=== PATIENT | female | born 1985 | race Caucasian/White ===

== ENCOUNTER → 2019-09-10 11:08 | Outpatient (BNVA) | payer MEDICAID, SELFPAY | PROVIDERS: PCP Nurse Practitioner; Visit Provider Nurse Practitioner | DX: F32.9 Major depressive disorder, single episode, unspecified (principal); N39.0 Urinary tract infection, site not specified; K52.9 Noninfective gastroenteritis and colitis, unspecified | CPT/HCPCS: 81003; 87086 ==

== ENCOUNTER → 2019-11-11 12:09 | Outpatient (BNVA) | payer OTHER, MEDICAID, SELFPAY | PROVIDERS: PCP Nurse Practitioner; Visit Provider Nurse Practitioner | DX: N93.9 Abnormal uterine and vaginal bleeding, unspecified (principal); R60.9 Edema, unspecified | CPT/HCPCS: 80053; 84443; 85025 ==

== ENCOUNTER → 2019-11-13 15:37 | Outpatient (BNVA) | payer OTHER, SELFPAY | PROVIDERS: PCP Nurse Practitioner; Visit Provider Nurse Practitioner | DX: N93.9 Abnormal uterine and vaginal bleeding, unspecified (principal) | CPT/HCPCS: 81000 ==

== ENCOUNTER → 2019-12-30 13:40 | Outpatient (BNVA) | payer OTHER, MEDICAID, SELFPAY | PROVIDERS: PCP Nurse Practitioner; Visit Provider Nurse Practitioner Family | DX: R53.83 Other fatigue (principal); W57.XXXA Bitten or stung by nonvenomous insect and other nonvenomous arthropods, initial encounter; R31.9 Hematuria, unspecified | CPT/HCPCS: 80053; 81001; 84443; 85025; 86618; 86666; 86757; 87400 ==

== ENCOUNTER → 2020-03-04 16:27 | Outpatient (BNVA) | payer OTHER, SELFPAY | PROVIDERS: PCP Nurse Practitioner; Visit Provider Nurse Practitioner Family | DX: R10.9 Unspecified abdominal pain (principal); R11.2 Nausea with vomiting, unspecified | CPT/HCPCS: 81001 ==

== ENCOUNTER 2020-03-10 07:55 | Outpatient (CLI) | payer OTHER, MEDICAID, SELFPAY ==
--- NOTE | 2020-03-10 08:45 | US_ITS ---
WS: [id number] Complete ABDOMINAL ULTRASOUND HISTORY: abdominal pain COMPARISON: 08/17/2019 Liver: 14.9 cm in length. Liver is normal size and echogenicity with no mass or intrahepatic dilatati on. Gallbladder: Normally distended with no gallstones, wall thickening or pericholecystic fluid. Gallbladder wall thickness: 0.2 cm. Pancreas: Normal size and echogenicity. CBD: 0.4 cm. Right kidney: 11.9 cm x 4.4 cm x 4.5 cm. No mass, cortical thickening or hydronephrosis. Left kidney: 11.1 cm x 4.6 cm x 4.9 cm. No mass, cortical thickening or hydronephrosis. Spleen: Normal size and echogenicity. Abdominal aorta and IVC are within normal limits. No ascites. Incidental note is made of a small RIGHT ovarian follicle with a maximum diameter of 2.2 cm. US/US abdomen complete* [id number] IMPRESSION: Normal complete abdomen ultrasound.
== END 2020-03-10 07:56 | disposition home or self-care (01) ==
LOC: RAD 08:00
PROVIDERS: PCP Nurse Practitioner; Visit Provider Nurse Practitioner Family
DX: R10.9 Unspecified abdominal pain (principal)
CPT/HCPCS: 76700

== ENCOUNTER → 2020-05-07 08:06 | Outpatient (BNVA) | payer OTHER, MEDICAID, SELFPAY | PROVIDERS: PCP Nurse Practitioner; Visit Provider Nurse Practitioner Family | DX: R06.02 Shortness of breath (principal); J22 Unspecified acute lower respiratory infection | CPT/HCPCS: 71046; 80053; 85025 ==

== ENCOUNTER → 2020-08-12 12:58 | Outpatient (BNVA) | payer MEDICAID, SELFPAY | PROVIDERS: PCP Nurse Practitioner; Visit Provider Nurse Practitioner Family | DX: M25.559 Pain in unspecified hip (principal); M54.10 Radiculopathy, site unspecified | CPT/HCPCS: 72114 ==

== ENCOUNTER → 2021-01-28 14:12 | Outpatient (BNVA) | payer OTHER, MEDICAID, SELFPAY | PROVIDERS: PCP Nurse Practitioner Family; Visit Provider Nurse Practitioner Family | DX: R59.0 Localized enlarged lymph nodes (principal); Z13.6 Encounter for screening for cardiovascular disorders; F41.9 Anxiety disorder, unspecified; F32.9 Major depressive disorder, single episode, unspecified; E55.9 Vitamin D deficiency, unspecified; Z79.899 Other long term (current) drug therapy; B37.3 Candidiasis of vulva and vagina; J42 Unspecified chronic bronchitis; H66.90 Otitis media, unspecified, unspecified ear; B96.89 Other specified bacterial agents as the cause of diseases classified elsewhere; J01.90 Acute sinusitis, unspecified | CPT/HCPCS: 80053; 80061; 81003; 82306; 83036; 84443; 85025; 85651; 86140 ==

== ENCOUNTER → 2021-02-25 16:31 | Outpatient (BNVA) | payer OTHER, SELFPAY | PROVIDERS: PCP Nurse Practitioner Family; Visit Provider Nurse Practitioner Family | DX: R59.0 Localized enlarged lymph nodes (principal) | CPT/HCPCS: 80053; 82607; 82728; 82746; 85025; 86000; 86038; 86308; 86618; 86666; 86757; 87806 ==

== ENCOUNTER 2021-03-11 14:10 | Outpatient (CLI) | payer OTHER, SELFPAY ==
--- NOTE | 2021-03-11 15:00 | US_ITS ---
WS: [id number] ULTRASOUND SOFT TISSUES bilateral neck. Ultrasound soft tissues bilateral inguinal. HISTORY: R59.0 - Localized enlarged lymph nodes COMPARISON: None available. TECHNIQUE: 2-D and color Doppler imaging is submitted. Benign-appearing lymph nodes along the posterior occipital chains of the neck. Lymph nodes remain ova l-shaped with normal vascularity. Enlarged and moderately abnormal lymph nodes in the inguinal region. There is still a fatty hilum pre sent but there is some very mild increased vascularity. Largest lymph node measures 1.5 x 1.4 x 0.6 c m in the RIGHT groin. Vascularity is more diffuse than central at the hilum. US/US soft tissue/extremity [id number] IMPRESSION: 1. Bilateral occipital cervical lymph notes are likely benign. 2. Enlarged, mildly hypervascular lymph nodes in the inguinal regions bilatera lly. These could be neoplastic or reactive and postinflammatory. If lymph nodes continue to increase in size consider further evaluation or surgical removal.
== END 2021-03-11 14:11 | disposition home or self-care (01) ==
LOC: RAD 14:16
PROVIDERS: PCP Nurse Practitioner Family; Visit Provider Nurse Practitioner Family
DX: R59.0 Localized enlarged lymph nodes (principal)
CPT/HCPCS: 76882

== ENCOUNTER → 2021-03-31 15:42 | Outpatient (BNVA) | payer OTHER, SELFPAY | PROVIDERS: PCP Nurse Practitioner Family; Visit Provider Surgery | DX: Z20.822 Contact with and (suspected) exposure to COVID-19 (principal) | CPT/HCPCS: 87635 ==

== ENCOUNTER 2021-04-05 06:58 | Day surgery (SDC) | payer OTHER, MEDICAID, SELFPAY ==
[2021-04-02 14:45] VITALS: BMI 25.2
[2021-04-05] VITALS (7 sets, daily range): BP systolic 102–109; BP diastolic 47–84; PULSE 64–72; RESP 14–19; TEMP 36.2–36.7; O2SAT 97–100
--- NOTE | 2021-04-05 07:57 | W.PM.OPSFHP ---
Same Day Surgery H&P Indication for Procedure/HPI DATE OF PROCEDURE: April 05, 2021 CHIEF COMPLAINT/INDICATIONFOR SURGICAL PROCEDURE: left inguinal lymph node biopsy PREOP DIAGNOSIS: Inguinal lymphadenopathy PLANNED PROCEDRUE: Operation Date: 04/05/21 09:55 Proposed Procedures p LEFT INGUINAL LYMPH NODE BIOSPY 57638 r59.0(Left) - Rober lAicia MD Medications/Allergies* Allergies/Adverse Reactions Allergy/AdvReac Type Severity Reaction Status Date / Time Penicillins Allergy Intermediate rash Verified 04/02/21 14:39 latex AdvReac Intermediate itching Verified 04/02/21 14:39 Pertinent History/Comorbid Conditions* Medical History (Updated 04/02/21 @ 18:03 by LARA Kan) Acute bacterial sinusitis Acute otitis media Anxiety and depression Back pain with radiculopathy Bronchitis Bursitis of left elbow Chronic bronchitis Chronic insomnia Depression GERD (gastroesophageal reflux disease) H/O nephrotic syndrome Lower respiratory infection Mild intermittent asthma Pneumonia Vitamin D deficiency Surgical History (Updated 03/16/21 @ 09:59 by Rober Alicia MD) H/O total hysterectomy History of ear surgery 2019 History of laparoscopy several History of umbilical hernia repair 2017- lap Social History Smoking and tobacco status: current every day smoker cigarettes Packs smoked per day: 1 Years cigarettes smoked: 19 Quit status (tobacco): has tried quititng Number of times tried to quit tobacco: 6 Alcohol intake: unknown Marital status: Number of children: 1 Highest education level completed: 12th Grade, No Diploma Current occupational status: employed 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
[2021-04-05] MEDS: sodium chloride 0.9% 1,000 ML 30 ML IV (08:00)
--- NOTE | 2021-04-05 08:35 | P.ANESASSM_ITS ---
Pre-Anesthetic Assessment Pre-Anesthetic Assessment: Height/Weight: Height 1.63 m Weight 66.678 kg Temp Pulse Resp BP Pulse Ox 97.6 F 65 16 105/70 100 04/05/21 07:42 04/05/21 07:42 04/05/21 07:42 04/05/21 07:42 04/05/21 07:42 Preop Diagnosis: Inguinal lymphadenopathy Proposed Procedure: Operation Date: 04/05/21 09:55 Proposed Procedures p LEFT INGUINAL LYMPH NODE BIOSPY 70823 r59.0(Left) - Rober Alicia MD Familial anesthetic complications: NOne Was Beta Suhail taken within 24 hours: N/A Was Clonidine taken within 24 hours: N/A Last intake: Intake Last Liquid Date 04/04/21 Last Liquid Time 15:00 Last Solid Date 04/04/21 Last Solid Time 15:00 Social: Social History: Alcohol and Tobacco Exam: Pre-Anes Outpt Exam: alert, oriented x 3, clear to auscultation bilaterally and regular rate & rhythm Additional Exam Findings (including area of procedure): Wheezes (R.> L) - patient states normal for her Airway: Cervical ROM: WNL MP: 2 Dentition: Full Pulmonary: Comments: hx pneumonia and bronchitiis - no current breathing difficulties Anesthetic Plan: ASA status: 2 Anesthesia: MAC Risk of > 500 ml blood loss (7ml/kg in children): No PFSH Anesthesia PFSH: Medical History (Updated 04/02/21 @ 18:03 by LARA Kan) Acute bacterial sinusitis Acute otitis media Anxiety and depression Back pain with radiculopathy Bronchitis Bursitis of left elbow Chronic bronchitis Chronic insomnia Depression GERD (gastroesophageal reflux disease) H/O nephrotic syndrome Lower respiratory infection Mild intermittent asthma Pneumonia Vitamin D deficiency Surgical History H/O total hysterectomy History of ear surgery 2020 History of laparoscopy several History of umbilical hernia repair 2017- lap Social History Smoking and tobacco status: current every day smoker cigarettes Packs smoked per day: 1 Years cigarettes smoked: 19 Quit status (tobacco): has tried quititng Number of times tried to quit tobacco: 6 Alcohol intake: unknown Marital status: Number of children: 1 Highest education level completed: 12th Grade, No Diploma Current occupational status: employed 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
[2021-04-05] MEDS: vancomycin 1,000 MG in sodium chloride 0.9% 250 ML 250 MG IV (11:48)
[2021-04-05] MEDS: lidocaine 1% INJ 20 mL SUBCUT (12:00)
--- NOTE | 2021-04-05 12:39 | SUR.PHASEI ---
1236 PATIENT TO OPS. TALKATIVE. A/OX3. RR EVEN AND UNLABORED. DERMABOND TO LEFT GROIN, CDI.
[2021-04-05] MEDS: HYDROcodone-acetaminophen 5-325 mg Tablet 1 TAB PO (13:00)
--- NOTE | 2021-04-05 19:31 | ANE.PACU2 ---
Inpatient post-anesthesia follow up: Airway intact: Yes Vital signs: Temperature 98.0 F Pulse Rate 72 Respiratory Rate 18 Blood Pressure 106/84 Pulse Oximetry 100 Oxygen Delivery Me thod Room Air Oxygen Flow Rate Fraction of Inspir ed Oxygen Hydration adequate: Yes Nausea and vomiting: No Pain level: 1 Mental status: Baseline
--- NOTE | 2021-04-07 11:00 | PM.OP ---
Operative Report Date of procedure: April 05, 2021 Pre-op Diagnosis: Inguinal lymphadenopathy Post-op diagnosis: same Procedure Done: Excision of left inguinal lymph node Pathology: Left inguinal lymph node Surgeon: Rober Alicia Anesthesia: MAC Condition: stable Disposition: PACU Procedure: Patient is taken to the operating room and placed under MAC after IV antibiotic had been administered. The left groin was prepped and draped in sterile manner. 1% lidocaine 0.5% Marcaine was infiltrated in the left groin. Using a 15 blade a 4 cm incision was made over the palpable inguinal lymph node in the left groin. The subcutaneous tissue was divided with electrocautery and the lipoma was dissected free from the surrounding subcutaneous tissue. The vascular pedicle was ligated with 3-0 Vicryl suture and the lymph node was sent fresh to pathology. Wound was irrigated with saline, hemostasis ensured, subcutaneous tissue approximated using interrupted 3-0 Vicryl suture and skin was closed using a running subcuticular 4-0 Monocryl suture and surgical glue. The patient was transferred recovery room in stable condition.
[2021-04-09 09:16] LABS: Miscellaneous Test See Scanned Lab Rpt
== END 2021-04-05 13:06 | disposition home or self-care (01) ==
PROVIDERS: PCP Nurse Practitioner Family; Visit Provider Surgery
PROC: (CPT 38531; principal; 2021-04-05 09:45)
DX: R59.1 Generalized enlarged lymph nodes (principal); F17.210 Nicotine dependence, cigarettes, uncomplicated; K21.9 Gastro-esophageal reflux disease without esophagitis; J45.20 Mild intermittent asthma, uncomplicated; F32.9 Major depressive disorder, single episode, unspecified
CPT/HCPCS: 38531; 88184; 88185; 88305; J2704; J3010; J3370; J3490; J3535; J7030; J7050

== ENCOUNTER → 2021-08-09 16:38 | Outpatient (BNVA) | payer OTHER, MEDICAID, SELFPAY | PROVIDERS: PCP Nurse Practitioner Family; Visit Provider Nurse Practitioner Family | DX: J22 Unspecified acute lower respiratory infection (principal); R05.9 Cough, unspecified | CPT/HCPCS: 71046 ==

== ENCOUNTER → 2021-08-10 12:27 | Outpatient (BNVA) | payer OTHER, SELFPAY | PROVIDERS: PCP Nurse Practitioner Family; Visit Provider Nurse Practitioner Family | DX: J22 Unspecified acute lower respiratory infection (principal); R05.9 Cough, unspecified; Z20.822 Contact with and (suspected) exposure to COVID-19 | CPT/HCPCS: 87635 ==

== ENCOUNTER 2021-10-12 12:20 | Day surgery (SDC) | payer OTHER, MEDICAID, SELFPAY ==
[2021-10-11 13:31] VITALS: BMI 28.7
[2021-10-12] VITALS (9 sets, daily range): BP systolic 106–140; BP diastolic 65–89; PULSE 66–99; RESP 16–18; TEMP 36.9–37.4; O2SAT 93–100
--- NOTE | 2021-10-12 13:26 | ANES.PREANE2 ---
Pre-Anesthetic Assessment Height/Weight: Height 1.57 m Weight 71.214 kg Temp Pulse Resp BP Pulse Ox 98.4 F 66 16 106/67 100 10/12/21 12:38 10/12/21 12:38 10/12/21 12:38 10/12/21 12:38 10/12/21 12:38 Preop Diagnosis: Inguinal lymphadenopathy Operation Date: 10/12/21 14:15 Proposed Procedures p Myringotomy and Tubes(Bilateral) - Allen Perez MD s Eustachian Tube Dilation need fess set(Bilateral) - Allen Perez MD Familial anesthetic complications: none Was Beta Suhail taken within 24 hours: N/A Was Clonidine taken within 24 hours: N/A Last intake: Intake Last Liquid Date 10/12/21 Last Liquid Time 08:00 Last Solid Date 10/11/21 Last Solid Time 17:00 Social No alcohol and No tobacco Exam alert, oriented x 3, clear to auscultation bilaterally and regular rate & rhythm Airway Mallampati: Class I Dentition: full Pulmonary Denies asthma GI Gastroesophageal Reflux Disease Anesthetic Plan ASA status: 2 Anesthesia: MAC Medications/Allergies Home Medications Medication Instructions Recorded Confirmed Last Taken Type clonazepam 0.5 mg tablet (Klonopin) 0.5 mg PO Q8H PRN 30 Days #90 tab 09/15/21 10/12/21 10/05/21 Rx venlafaxine 75 mg capsule,extended 75 mg PO DAILY 90 Days #90 cap 09/15/21 10/12/21 10/09/21 Rx release 24 hr Allergies Allergy/AdvReac Type Severity Reaction Status Date / Time Penicillins Allergy Intermediate rash Verified 10/12/21 12:28 latex AdvReac Intermediate itching Verified 10/12/21 12:28 [facility] Anesthesia Medical History Acute bacterial sinusitis Anxiety and depression Back pain with radiculopathy Bursitis of left elbow Chronic bronchitis Chronic insomnia Cigarette smoker Cough Depression GERD (gastroesophageal reflux disease) H/O nephrotic syndrome Mild intermittent asthma Pneumonia Vitamin D deficiency Surgical History H/O total hysterectomy History of ear surgery 2019 History of laparoscopy several History of umbilical hernia repair 2017- lap S/P lymph node biopsy (04/05/21) Social History Smoking and tobacco status: current every day smoker cigarettes Packs smoked per day: 1 Years cigarettes smoked: 19 Quit status (tobacco): has tried quititng Number of times tried to quit tobacco: 6 Alcohol intake: unknown Marital status: Number of children: 1 Highest education level completed: 12th Grade, No Diploma Current occupational status: employed 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
--- NOTE | 2021-10-12 14:21 | W.PM.OPSUD ---
Surgery/Procedure H&P Update DATE OF PROCEDURE: October 12, 2021 DATE H&P PERFORMED: 10/08/21 PREOP DIAGNOSIS: Chronic eustachian tube dysfunction PRIMARY INDICATION FOR PROCEDURE: Chronic eustachian tube dysfunction PLANNED PROCEDURE: Operation Date: 10/12/21 14:15 Proposed Procedures p Myringotomy and Tubes(Bilateral) - Allen Perez MD s Eustachian Tube Dilation need fess set(Bilateral) - Allen Perez MD
[2021-10-12 14:50] LABS: Adenovirus Not Detected (NOT DETECT); Chlamydia Pneumoniae Not Detected (NOT DETECT); Coronavirus 229E,HKU1,NL63,OC4 Not Detected (NOT DETECT); Human Metapneumovirus Not Detected (NOT DETECT); Human Rhinovirus/Enterovirus Not Detected (NOT DETECT); Influenza A Not Detected (NOT DETECT); Influenza A H1 Not Detected (NOT DETECT); Influenza A H1-2009 Not Detected (NOT DETECT); Influenza A H3 Not Detected (NOT DETECT); Influenza B Not Detected (NOT DETECT); Mycoplasma Pneumoniae Not Detected (NOT DETECT); Parainfluenza Virus Type 1 Not Detected (NOT DETECT); Parainfluenza Virus Type 2 Not Detected (NOT DETECT); Parainfluenza Virus Type 3 Not Detected (NOT DETECT); Parainfluenza Virus Type 4 Not Detected (NOT DETECT); Respiratory Syncytial Virus A Not Detected (NOT DETECT); Respiratory Syncytial Virus B Not Detected (NOT DETECT); SARS-COV-2 Not Detected (NOT DETECT)
--- NOTE | 2021-10-12 16:05 | PM.OP ---
Operative Report Date of procedure: October 12, 2021 Pre-op diagnosis: Preop Diagnosis Chronic eustachian tube dysfunction bilateral otitis media with effusion Post-op diagnosis: same Post-op findings: Bilateral otitis media with effusion Chronic eustachian tube dysfunction Procedure done: Bilateral myringotomy with tympanostomy tube placement Bilateral Eutstachian tube balloon dilation Implants: None Specimens removed/disposition: None Pathology: none sent Surgeon: Allen Perez Anesthesia: General Estimated blood loss (mL): 10 IV fluids (mL): 1,000 Complications: None Condition: stable Disposition: same day Brief History: 36 yo wf with a h/o chornic eustachian tube dysfunction who desires surgical therapy. Procedure: The patient was identified in the preoperative holding area and was taken to the operating where she was placed on the operating table in the supine position. Anesthesia was obtained with general endotracheal anesthesia and the patient's head was turned to the right exposing the left ear to the operating surgeon. An aural speculum was placed in the patient's left external auditory canal and the operating microscope with a 300 lens was brought into the field and was used to make an inspection of the patient's left tympanic membrane. A radial incision was then made in the anterior-inferior quadrant patient left tympanic membrane with a myringotomy knife - the middle ear effusion present was evacuated with suction. A tympanostomy tube was then placed in the myringotomy site with a pair of alligator forceps. At this point the ear was filled with Ciprodex otic suspension followed by cotton ball. Attention was then turned to the right ear where a similar procedure was performed. At this point the patient's nose was injected with local anesthesia and topical topical Afrin lidocaine mix was placed on neuro nasal pledgets bilaterally. 10 minutes were allowed to pass and the patient was then prepped in the usual sterile fashion. The nasal pledgets were removed and a 0 degree Pope jimy surgical telescope was advanced into the nasopharynx through the nose and an inspection was carried out of the patient's nasopharynx. The [employer] Eustachian tube balloon dilation system was used to dilate the right and then the left eustachian tubes transnasally at 12 harinder for 2 minutes each without complications. Once this was accomplished the balloon was removed and the procedure was terminated. Control of the patient was then returned to anesthesia where she underwent an uneventful reversal of anesthesia and extubation and was taken to the recovery room in stable condition. There were no operative or anesthetic complications
[2021-10-12] MEDS: ciprofloxacin-dexameth Otic Susp 7.5 mL Btl 4 DROP EAR-BOTH (16:09)
[2021-10-12] MEDS: lidocaine 4% PF 5 mL INJ XX (16:10)
[2021-10-12] MEDS: oxymetazoline 0.05% Nasal Spray 15 mL 1 SPRAY NOSTRIL-B (16:10)
[2021-10-12] MEDS: fentaNYL 50 mcg/mL INJ 2mL IVP (16:17)
--- NOTE | 2021-10-12 16:51 | SUR.PHASEII ---
patient has a bad headache. room is darkened, ice pack to back of head. pt is out getting RX filled.
[2021-10-12] MEDS: diphenhydrAMINE 50 mg/mL SDV 1mL 12.5 MG IVP (17:02)
== END 2021-10-12 18:02 | disposition home or self-care (01) ==
PROVIDERS: PCP Nurse Practitioner Family; Visit Provider Specialist
PROC: (CPT 69420; principal; 2021-10-12 14:15)
PROC: (CPT 69436; 2021-10-12 14:15)
DX: H65.93 Unspecified nonsuppurative otitis media, bilateral (principal); H69.93 Unspecified Eustachian tube disorder, bilateral; K21.9 Gastro-esophageal reflux disease without esophagitis; J45.20 Mild intermittent asthma, uncomplicated; F17.210 Nicotine dependence, cigarettes, uncomplicated
CPT/HCPCS: 69436; 69706; 12345; 87635; 96374; C9745; J1100; J1200; J1885; J2250; J2405; J2704; J3010

== ENCOUNTER → 2021-11-05 10:02 | Outpatient (BNVA) | payer OTHER, MEDICAID, SELFPAY | PROVIDERS: PCP Nurse Practitioner Family; Visit Provider Nurse Practitioner Women's Health | DX: R10.2 Pelvic and perineal pain (principal) | CPT/HCPCS: 87086; 87491; 87591; 87661 ==

== ENCOUNTER → 2021-11-22 12:09 | Outpatient (BNVA) | payer OTHER, MEDICAID, SELFPAY | PROVIDERS: PCP Nurse Practitioner Family; Visit Provider Specialist | DX: Z20.822 Contact with and (suspected) exposure to COVID-19 (principal); H65.23 Chronic serous otitis media, bilateral | CPT/HCPCS: 87635 ==

== ENCOUNTER 2021-12-09 10:13 | Outpatient (CLI) | payer OTHER, MEDICAID, SELFPAY ==
--- NOTE | 2021-12-09 10:25 | US_ITS ---
WS: [id number] TRANSVAGINAL PELVIC ULTRASOUND HISTORY: R10.2 - Pelvic and perineal pain, status post hysterectomy. COMPARISON: None available. Uterus is not identified midline. No free fluid in the pelvis. Right ovary: 2.7 cm x 2.4 cm x 1.6 cm. Normal size and vascularity, no cystic or solid masses. Severa l small peripheral follicles. Left ovary: 2.7 cm x 2.5 cm x 1.8 cm. Normal size and vascularity, no cystic or solid masses. There a re several follicles within the ovary. Some of the siegel are crenulated suggesting collapsing corpus luteal cysts. No solid mass. US/US transvaginal [id number] IMPRESSION: 1. Status post hysterectomy. No midline mass. 2. Small bilateral ovarian follicles. Small collapsing hemorrhagic cysts or co rpus luteal cysts in the LEFT ovary. No solid mass.
== END 2021-12-09 10:14 | disposition home or self-care (01) ==
LOC: RAD 10:16
PROVIDERS: PCP Nurse Practitioner Family; Visit Provider Nurse Practitioner Women's Health
DX: R10.2 Pelvic and perineal pain (principal); Z90.710 Acquired absence of both cervix and uterus; N88.8 Other specified noninflammatory disorders of cervix uteri
CPT/HCPCS: 76830

== ENCOUNTER → 2022-01-10 10:09 | Outpatient (BNVA) | payer OTHER, MEDICAID, SELFPAY | PROVIDERS: PCP Nurse Practitioner Family; Visit Provider Obstetrics & Gynecology | DX: Z01.812 Encounter for preprocedural laboratory examination (principal); R10.2 Pelvic and perineal pain; N32.81 Overactive bladder | CPT/HCPCS: 80053; 81000; 85025; 86850; 86900 ==

== ENCOUNTER 2022-01-12 05:38 | Day surgery (SDC) | payer OTHER, MEDICAID, SELFPAY ==
[2022-01-10 10:44] VITALS: BMI 33.3
--- NOTE | 2022-01-10 11:41 | P.ANESASSM_ITS ---
Pre-Anesthetic Assessment Height/Weight: Height 1.57 m Weight 82.554 kg Preop Diagnosis: Chronic eustachian tube dysfunction Operation Date: 01/12/22 07:00 Proposed Procedures p Laparoscopy 47727/r10.2(Not Applicable) - Sandoval Gallagher MD Familial anesthetic complications: none Was Beta Suhail taken within 24 hours: N/A Was Clonidine taken within 24 hours: N/A Social Tobacco ([place]) and No alcohol Exam alert, oriented x 3, clear to auscultation bilaterally and regular rate & rhythm Airway Submandibular: within normal limits Cervical ROM: within normal limits Mallampati: Class II Dentition: full GI Gastroesophageal Reflux Disease Metabolic Morbid Obesity Musc/skel Lower Back Pain Neuropsych Anxiety and Depression Anesthetic Plan ASA status: 2 Anesthesia: General Medications/Allergies Home Medications Medication Instructions Recorded Confirmed Last Taken Type acetaminophen 325 mg capsule 325 mg PO QID PRN 11/05/21 01/10/22 Unknown History (Tylenol) clonazepam 0.5 mg tablet (Klonopin) 0.5 mg PO Q8H PRN 30 Days #90 tab 12/02/21 01/10/22 Unknown Rx Allergies Allergy/AdvReac Type Severity Reaction Status Date / Time Penicillins Allergy Intermediate rash Verified 01/10/22 10:43 latex AdvReac Intermediate itching Verified 01/10/22 10:43 [facility] Anesthesia Medical History Anxiety and depression Back pain with radiculopathy Bursitis of left elbow Chronic bronchitis Chronic insomnia Endometriosis determined by laparoscopy (~2009) Self reports confirmation during laparotomy in 2009, but again confirmed at the time of her hysterectomy in 2013. GERD (gastroesophageal reflux disease) H/O nephrotic syndrome Inguinal lymphadenopathy Mild intermittent asthma No pertinent past medical history neghx: htn,dm,thyroid,dvt/pe PCP: [facility] Vitamin D deficiency Surgical History H/O bladder repair surgery (~2016) performed twice-- both completed in [place] H/O dilation and curettage treat SAB H/O exploratory laparotomy (~2009) dx with endometriosis at that time. Dr. Padilla History of ear surgery 2019 History of ear surgery (~10/13/21) R ear, tube placed History of hysterectomy (~08/07/14) Da Liliana assisted LAVH, laparoscopic bilateral salpingectomy ovaries spared. Performed in [place]- due to pelvic pain and heavy periods. Minimal endometriosis noted. Performed by Dr. Torres at [place] [facility] History of kidney surgery Left ureter required repair after her hysterectomy History of laparoscopy several-- for pain/endometriosis treatment-- after her endometriosis diagnosis History of umbilical hernia repair 2017- lap S/P lymph node biopsy (04/05/21) groin-- benign Family History Mother Diabetes Hypertension Grandfather Heart disease Maternal Father Hypertension Thyroid disease Daughter Thyroid disease Denies family history of Colon cancer Ovarian cancer Hypercholesteremia Breast cancer Uterine cancer Stroke Data Anesthesia Cardiac Studies: No Data to Display
[2022-01-12] VITALS (11 sets, daily range): BP systolic 102–133; BP diastolic 31–87; PULSE 56–81; RESP 16–18; TEMP 36.3–36.6; O2SAT 93–99
[2022-01-12] MEDS: sodium chloride 0.9% 1,000 ML 30 ML IV (06:26)
[2022-01-12] MEDS: scopolamine 1.5 Patch 1 PATCH TRANSDERMA (06:27)
--- NOTE | 2022-01-12 06:51 | W.PM.OPSUD ---
Surgery/Procedure H&P Update DATE OF PROCEDURE: January 12, 2022 DATE H&P PERFORMED: 01/10/22 H&P UPDATE INFORMATION: I have reviewed H&P completed within last 30 days, I have examined patient prior to procedure and No changes to prior documentation PREOP DIAGNOSIS: Chronic pelvic pain PLANNED PROCEDURE: Operation Date: 01/12/22 07:00 Proposed Procedures p Laparoscopy 29496/r10.2(Not Applicable) - Sandoval Gallagher MD
[2022-01-12] MEDS: vancomycin 1,000 MG in sodium chloride 0.9% 250 ML 250 MG IV (06:53)
--- NOTE | 2022-01-12 07:18 | P.ANESUD_ITS ---
Pre-Anesthetic Update Pre-Anesthetic Assessment: Date of Surgery/Procedure: 01/12/22 Preop Melody gnosis: Chronic pelvic pain Proposed Procedure: Operation Date: 01/12/22 07:00 Proposed Procedures p Laparoscopy 25756/r10.2(Not Applicable) - Sandoval Gallagher MD Any changes to Pre-Anesthetic Assessment?: No Last Intake: Intake Last Liquid Date 01/11/22 Last Liquid Time 19:00 Last Solid Date 01/11/22 Last Solid Time 19:00 Vitals: Temperature 97.7 F 01/12/22 06:06 Temperature Source Temporal Artery S can 01/12/22 06:06 Pulse Rate 67 01/12/22 06:06 Pulse Rhythm 01/12/22 06:06 Pulse Strength 3+ Normal 01/12/22 06:06 Respiratory Rate 18 01/12/22 06:06 Blood Pressure 133/63 01/12/22 06:06 Blood Pressure Asmita n 86 01/12/22 06:06 Pulse Oximetry 97 01/12/22 06:06 Oxygen Delivery Me thod 01/12/22 06:06 Exam: Pre-Anes Outpt Exam: alert, oriented x 3, clear to auscultation bilaterally and regular rate & rhythm Cardiac Studies: No Data to Display
--- NOTE | 2022-01-12 07:45 | P.OP_ITS ---
Operative Report Date of procedure: January 12, 2022 Pre-op diagnosis: Preop Diagnosis Chronic pelvic pain Post-op diagnosis: Same as above Post-op findings: Post hysterectomy, normal ovaries Procedure done: Diagnostic laparoscopy Specimens removed/disposition: None Pathology: None Surgeon: Sandoval Gallagher MD Estimated blood loss (mL): 5 IV fluids (mL): 1,000 Complications: None Findings: Status post hysterectomy Brief History: Mrs. Reyes 36-year-old female post hysterectomy with chronic pelvic pain. Procedure: DESCRIPTION OF PROCEDURE: After informed consent, the patient was taken to the operating room where general anesthesia was administered. The patient was examined under anesthesia and found to have a normal uterus with normal adnexa. She was placed in the dorsal lithotomy position and prepped and draped in sterile fashion. Pre- Procedure Time-Out verifying the correct patient identity, correct procedure verified with consent, correct site and side, correct patient position, availability of correct implants and any special equipment or requirements was performed and acknowledge by the OR team. A weighted speculum was placed in the vagina, and a sponge stick was inserted in the vagina as she does not have a cervix then the speculum was removed from the vagina. An intraumbilical incision was made with a scalpel. While tenting up on the abdomen, a Verres needle with sleeve was admitted into the intra-abdominal cavity. A saline drop test was performed and noted to be within normal limits. Pneumoperitoneum was attained with 4 liters of carbon dioxide. The Verres needle was removed. A 5 mm trocar and sleeve were admitted into the abdomen and laparoscopic confirmation of location was achieved, A second incision was made 3 cm above the symphysis pubis, and a 5 mm trocar and sleeve were admitted into the abdomen under direct, laparoscopic visualization without complication. A 5 mm blunt probe was advanced through the second trocar sleeve, and light manipulation of ovaries and bowels to assess the cul de sac was performed. A survey revealed abdominal anatomy significant the apperance of lobulated liver at incertion of falciform ligament. The pelvic survey shows normal post hysterectomy, left and right ovaries with right ovary with follicular cyst. Carbon dioxide was allowed to escape from the abdomen. The instruments were removed, and skin cover with a bandage. The instruments were removed from the vagina, and excellent hemostasis was noted. The patient tolerated the procedure well, and sponge, lap and needle count were correct times two. The patient taken to the recovery room in good condition.
[2022-01-12] MEDS: meperidine 50 mg/mL INJ 12.5 MG IVP (08:05)
[2022-01-12] MEDS: fentaNYL 50 mcg/mL INJ 2mL IVP (08:10)
[2022-01-12] MEDS: HYDROcodone-acetaminophen 5-325 mg Tablet 1 TAB PO (09:04)
--- NOTE | 2022-01-12 17:08 | ANE.PACU2 ---
Inpatient post-anesthesia follow up: Airway intact: Yes Vital signs: Temperature 97.6 F Pulse Rate 59 Respiratory Rate 18 Blood Pressure 113/69 Pulse Oximetry 95 Oxygen Delivery Me thod Room Air Oxygen Flow Rate 6 Fraction of Inspir ed Oxygen Hydration adequate: Yes Nausea and vomiting: No Pain level: 2 Mental status: Baseline
== END 2022-01-12 09:19 | disposition home or self-care (01) ==
PROVIDERS: PCP Nurse Practitioner Family; Visit Provider Obstetrics & Gynecology
PROC: (CPT 49320; principal; 2022-01-12 07:00)
DX: R10.2 Pelvic and perineal pain (principal); G89.29 Other chronic pain; Z90.710 Acquired absence of both cervix and uterus; K21.9 Gastro-esophageal reflux disease without esophagitis; E66.01 Morbid (severe) obesity due to excess calories; Z68.33 Body mass index [BMI] 33.0-33.9, adult; F32.9 Major depressive disorder, single episode, unspecified; F41.9 Anxiety disorder, unspecified
CPT/HCPCS: 49320; 51702; J1100; J1170; J1200; J1885; J2175; J2250; J2405; J2704; J2710; J3010; J3370; J3490; J7030; J7050

== ENCOUNTER 2022-06-23 15:08 | Emergency (ER) | payer MEDICAID, SELFPAY ==
[2022-06-23 15:41] VITALS: BP 124/58; PULSE 76; RESP 16; TEMP 36.4; O2SAT 98; BMI 32.2
[2022-06-23] MEDS: HYDROcodone-acetaminophen 5-325 mg Tablet 1 TAB PO (19:45)
--- NOTE | 2022-06-23 19:57 | W.ED.GENADLT ---
HPI - General Adult General: Chief complaint: General Medical Stated complaint: legs swelling, back pain Time Seen by Provider: 06/23/22 19:33 Source: patient Mode of arrival: ambulatory Limitations: no limitations History of Present Illness: 37-year-old female who states she has had bilateral back pain along with some slight leg swelling. States that she had a UA done last week that showed proteinuria was also placed on antibiotic for her UTI states she continues have bilateral back pain that she states feels like spasms. States she has had some intermittent leg swelling is improved currently. She rates her pain a 3 out of 10 denies any vomiting or fever. Associated symptoms: Deny chest pain, dyspnea, headache(s), nausea, rash or vomiting Review of Systems Const: Denies: fever(s), chills, body aches or change in appetite Eyes: Denies: blurry vision or eye discomfort ENMT: Denies: throat pain or dental pain Card: Denies: chest pain Resp: Denies: dyspnea GI: Denies: abdominal pain, nausea, vomiting or diarrhea : Denies: dysuria Musc: Reports: back pain and extremity swelling Skin/Breast: Denies: rash Neuro: Denies: headache(s) Psych: Denies: depression Jorgito/Lymph: Denies: easy bruising All/Imm: Denies: urticaria PFSH ED PFSH: Medical History Anxiety and depression Back pain with radiculopathy Bursitis of left elbow Chronic bronchitis Chronic insomnia Endometriosis determined by laparoscopy (~2009) Self reports confirmation during laparotomy in 2009, but again confirmed at the time of her hysterectomy in 2013. GERD (gastroesophageal reflux disease) H/O nephrotic syndrome Inguinal lymphadenopathy Mild intermittent asthma No pertinent past medical history neghx: htn,dm,thyroid,dvt/pe PCP: CATE Gross Vitamin D deficiency Surgical History H/O bladder repair surgery (~2016) performed twice-- both completed in [place] H/O dilation and curettage treat SAB H/O exploratory laparotomy (~2009) dx with endometriosis at that time. Dr. Padilla History of ear surgery 2019 History of ear surgery (~10/13/21) R ear, tube placed History of hysterectomy (~08/07/14) Da Liliana assisted LAVH, laparoscopic bilateral salpingectomy ovaries spared. Performed in [place]- due to pelvic pain and heavy periods. Minimal endometriosis noted. Performed by Dr. Torres at [place] [facility] History of kidney surgery Left ureter required repair after her hysterectomy History of laparoscopy several-- for pain/endometriosis treatment-- after her endometriosis diagnosis History of umbilical hernia repair 2017- lap S/P lymph node biopsy (04/05/21) groin-- benign Family History Mother Diabetes Hypertension Grandfather Heart disease Maternal Father Hypertension Thyroid disease Daughter Thyroid disease Denies family history of Colon cancer Ovarian cancer Hypercholesteremia Breast cancer Uterine cancer Stroke Social History Smoking and tobacco status: former smoker Physical Exam Const: COMMON NORMALS: no acute distress, patient oriented x3 and healthy appearing HENMT: COMMON NORMALS: normocephalic and atraumatic HEAD & SCALP: normocephalic and atraumatic Eye: COMMON NORMALS: Equal, round and reactive pupils present and EOMs intact bilaterally PUPIL: Yes Equal, round and reactive pupils present Neck/C-Spine: COMMON NORMALS: full ROM and supple Chest: COMMONS NORMALS: normal inspection of the chest and normal palpation of entire chest wall Resp: COMMON NORMALS: normal respiratory effort, No retractions, No use of accessory muscles and clear to auscultation bilaterally AUSCULTATION: clear to auscultation bilaterally Cardio: COMMON NORMALS: regular rate, regular rhythm and No murmurs present (Cardio) RATE: regular rate RHYTHM: regular rhythm GI: COMMON NORMALS: Normal to inspection, nondistended, normoactive bowel sounds present, Soft to palpation, non-tender and no masses PALPATION: Yes Soft to palpation Extremity: COMMON NORMALS: normal to inspection and full ROM Neuro: COMMON NORMALS: patient oriented x3, moves all extremities and no focal motor deficits Psych: COMMON NORMALS: mental status grossly normal, Normal thought process present and cooperative THOUGHT PROCESS: Normal thought process present Skin: COMMON NORMALS: no rashes or lesions noted and no wounds GENERAL SKIN EXAM: no rashes or lesions noted Course Vital Signs: Vital signs: Vital Signs Temperature 97.5 F L 06/23/22 15:41 Pulse Rate 76 06/23/22 15:41 Respiratory Rate 16 06/23/22 15:41 Blood Pressure 124/58 06/23/22 15:41 Pulse Oximetry 98 06/23/22 15:41 Oxygen Delivery Me thod 06/23/22 15:41 MDM - General Adult Medical Decision Making Patient presents here with back pain is likely muscular in nature she has no protein in her urine here no signs of kidney infection or stone blood work is normal we will place her on Naprosyn and Robaxin she is to follow-up with her PCP and return if worsening she understands agrees to plan. Lab Data : 06/23/22 19:51 06/23/22 19:51 Laboratory Results WBC 5.6 10^3/uL (4.0-10.0) 06/23/22 19:51 RBC 4.34 10^6/uL (4.1-5.3) 06/23/22 19:51 Hgb 13.0 g/dL (11.5-15.3) 06/23/22 19:51 Hct 39.4 % (37.0-47.0) 06/23/22 19:51 MCV 90.8 fl (81-99) 06/23/22 19:51 MCH 30.0 pg (28.0-34.0) 06/23/22 19:51 MCHC 33.0 g/dL (30.0-36.0) 06/23/22 19:51 RDW 13.4 % (12.1-15.1) 06/23/22 19:51 Plt Count 208 10^3/cmm (130-400) 06/23/22 19:51 MPV 11.9 fL (7.4-10.4) H 06/23/22 19:51 Neut % (Auto) 49.1 % 06/23/22 19:51 Lymph % (Auto) 23.5 % 06/23/22 19:51 [place] % (Auto) 11.2 % 06/23/22 19:51 Eos % (Auto) 15.3 % 06/23/22 19:51 Baso % (Auto) 0.5 % 06/23/22 19:51 Neut # (Auto) 2.76 10^3/uL (1.8-7.7) 06/23/22 19:51 Lymph # (Auto) 1.3 10^3/uL (0.8-4.8) 06/23/22 19:51 [place] # (Auto) 0.6 10^3/uL (0.2-0.9) 06/23/22 19:51 Eos # (Auto) 0.9 10^3/uL (0.0-0.8) H 06/23/22 19:51 Baso # (Auto) 0.0 10^3/uL (0.0-0.1) 06/23/22 19:51 Nucleated RBC % (auto) 0 % 06/23/22 19:51 Nucleated RBCs # 0.0 /100WBC 06/23/22 19:51 Sodium 137 mmol/L (136-145) 06/23/22 19:51 Potassium 3.7 mmol/L (3.5-5.1) 06/23/22 19:51 Chloride 103 mmol/L (98-107) 06/23/22 19:51 Carbon Dioxide 23 mmol/L (22-29) 06/23/22 19:51 Anion Gap 14.7 (5-19) 06/23/22 19:51 BUN 14 mg/dL (6-20) 06/23/22 19:51 Creatinine 0.4 mg/dL (0.5-0.9) L 06/23/22 19:51 GFR Calculation 180.6 mL/min (90-130) H 06/23/22 19:51 Glucose 79 mg/dL (65-115) 06/23/22 19:51 Calculated Osmolality 283 mOsm/kg (285-295) L 06/23/22 19:51 Calcium 9.1 mg/dL (8.5-10.5) 06/23/22 19:51 Total Bilirubin 0.8 mg/dL (0.15-1.2) 06/23/22 19:51 AST 14 U/L (0-32) 06/23/22 19:51 ALT 15 U/L (0-33) 06/23/22 19:51 Alkaline Phosphatase 54 U/L (35-105) 06/23/22 19:51 Total Protein 7.9 g/dL (6.6-8.7) 06/23/22 19:51 Albumin 4.4 g/dL (3.5-5.2) 06/23/22 19:51 Globulin 3.5 g/dL (1.3-4.6) 06/23/22 19:51 Lipase 16 U/L (13-60) 06/23/22 19:51 HCG, Qual Negative (Negative) 06/23/22 19:51 Urine Color Yellow (Yellow) 06/23/22 19:51 Urine Appearance Clear (CLEAR) 06/23/22 19:51 Urine pH 7 (5-7) 06/23/22 19:51 Ur Specific [place] 1.015 (1.005-1.030) 06/23/22 19:51 Urine Protein Neg (Negative) 06/23/22 19:51 Urine Glucose (UA) Norm (Normal) 06/23/22 19:51 Urine Ketones Negative (Negative) 06/23/22 19:51 Urine Blood Neg (Negative) 06/23/22 19:51 Urine Nitrate Negative (Negative) 06/23/22 19:51 Urine Bilirubin Neg (Negative) 06/23/22 19:51 Urine Urobilinogen Norm mg/dL (Negative) 06/23/22 19:51 Ur Leukocyte Esterase Negative (Negative) 06/23/22 19:51 Discharge Plan Discharge Patient Disposition: Home Clinical Impression: Back pain Condition: Stable Prescriptions: New methocarbamol 750 mg tablet 750 mg PO Q6H PRN (Reason: spasms) Qty: 20 0RF Naprosyn 500 mg tablet 500 mg PO BID PRN (Reason: pain) Qty: 20 0RF No Action ibuprofen 800 mg tablet 800 mg PO DAILY PRN (Reason: pain) 30 Days Qty: 30 0RF nitrofurantoin monohyd/m-cryst [Macrobid] 100 mg capsule 100 mg PO Q12H 7 Days Qty: 14 0RF Rx Instructions: must administer with a meal/food albuterol sulfate 90 mcg/actuation HFA aerosol inhaler 1 inh inhalation QID PRN (Reason: shortness of breath or wheezing) Qty: 8.5 0RF cyclobenzaprine 10 mg tablet 10 mg PO BID PRN (Reason: muscle spasm) Qty: 10 0RF venlafaxine 75 mg capsule,extended release 24hr 75 mg PO DAILY 90 Days Qty: 90 2RF clonazepam [Klonopin] 0.5 mg tablet 0.5 mg PO Q8H PRN (Reason: anxiety) 30 Days Qty: 90 1RF Discharge Orders: Discharge ED (Routine); Ordered 06/23/22 Ordered By: Mi Forebs Discharge Diet: Advance as tolerated Discharge Activity: Resume usual activity Patient Instructions: Back Pain (ED) Coding Level of Care Code ED Science Writer for Gracie Fwd Exam Comprehensive
[2022-06-23 20:03] LABS: Add Urine Microscopic? NO; Charge for UA Resulting for Rev
[2022-06-23 20:07] LABS: Basophils % 0.5 %; Eosinophils # 0.9 10^3/uL (0.0-0.8); Eosinophils % 15.3 %; Hematocrit 39.4 % (37.0-47.0); Lymphocytes # 1.3 10^3/uL (0.8-4.8); Lymphocytes % 23.5 %; Mean Corpuscular Volume 90.8 fl (81-99); Mean Platelet Volume 11.9 fL (7.4-10.4); Monocytes # 0.6 10^3/uL (0.2-0.9); Monocytes % 11.2 %; Neutrophils # 2.76 10^3/uL (1.8-7.7); Neutrophils % 49.1 %; Nucleated Red Blood Cells % 0 %; Platelet Count 208 10^3/cmm (130-400); Red Blood Count 4.34 10^6/uL (4.1-5.3); Red Cell Distribution Width 13.4 % (12.1-15.1); White Blood Count 5.6 10^3/uL (4.0-10.0)
[2022-06-23 20:15] LABS: Bilirubin Urine Neg (Negative); Blood Urine Neg (Negative); Glucose Urine UA Norm (Normal); HCG Qualitative Urine. Negative (Negative); Ketones Urine Negative (Negative); Leukocyte Esterase Urine Negative (Negative); Nitrate Urine Negative (Negative); Protein Urine Neg (Negative); Specific Gravity, Urine 1.015 (1.005-1.030); Urine Appearance Clear (CLEAR); Urine Color Yellow (Yellow); Urobilinogen Urine Norm (Negative); pH Urine 7 (5-7)
[2022-06-23 20:48] LABS: Alanine Aminotransferase 15 U/L (0-33); Albumin Level 4.4 g/dL (3.5-5.2); Alkaline Phosphatase 54 U/L (35-105); Anion Gap 14.7 (5-19); Aspartate Amino Transferase 14 U/L (0-32); Blood Urea Nitrogen 14 mg/dL (6-20); Calcium 9.1 mg/dL (8.5-10.5); Carbon Dioxide 23 mmol/L (22-29); Chloride 103 mmol/L (98-107); Globulin 3.5 g/dL (1.3-4.6); Glomerular Filtration Rate 180.6 mL/min (90-130); Glucose 79 mg/dL (65-115); Lipase 16 U/L (13-60); Osmolality Calculated 283 mOsm/kg (285-295); Potassium 3.7 mmol/L (3.5-5.1); Sodium 137 mmol/L (136-145); Total Bilirubin 0.8 mg/dL (0.15-1.2); Total Protein 7.9 g/dL (6.6-8.7)
[2022-06-23 21:27] VITALS: BP 162/98; PULSE 82; RESP 18; O2SAT 99
== END 2022-06-23 21:28 | disposition home or self-care (01) ==
PROVIDERS: Emergency Provider Emergency Medicine
DX: M54.9 Dorsalgia, unspecified (principal); Z87.891 Personal history of nicotine dependence
CPT/HCPCS: 80053; 81003; 81025; 83690; 85025; 99283

== ENCOUNTER 2022-08-05 13:05 | Outpatient (CLI) | payer MEDICAID, SELFPAY ==
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
--- NOTE | 2022-08-05 13:45 | MR_ITS ---
WS: [email or web address] MRI LUMBAR SPINE NONCONTRAST HISTORY: M54.10 - Radiculopathy, site unspecified COMPARISON: None available. TECHNIQUE: Sagittal and axial multisequence imaging is submitted. Normal lumbar alignment with no compression fractures or marrow edema. Disc spaces and vertebral body heights are well-preserved. Vertebral body hemangioma at L5. Conus terminates normally at L1-2 disc level. L1-L2: Mild annular disc bulging. No stenosis. L2-L3: Normal. L3-L4: Mild annular disc bulging with small central disc protrusion causing very mild deformity of th e ventral thecal sac. Mild ligamentum flavum and facet arthritis. L4-L5: Mild facet joint arthritis. No stenosis. L5-S1: Normal. Paravertebral soft tissues are normal. MR/MR lumbar spine wo con* [id number] IMPRESSION: 1. No high-grade central or foraminal stenosis. 2. Small central disc protrusion at L3-4. No stenosis or contact on the nerve roots.
== END 2022-08-05 13:06 | disposition home or self-care (01) ==
LOC: RAD 13:06
PROVIDERS: PCP Nurse Practitioner Family; Visit Provider Nurse Practitioner Family
DX: M54.10 Radiculopathy, site unspecified (principal); Z01.818 Encounter for other preprocedural examination; M51.26 Other intervertebral disc displacement, lumbar region
CPT/HCPCS: 70030; 72148

== ENCOUNTER → 2022-08-09 13:36 | Outpatient (BNVA) | payer MEDICAID, SELFPAY | PROVIDERS: PCP Nurse Practitioner Family; Visit Provider Orthopaedic Surgery | DX: M54.16 Radiculopathy, lumbar region (principal); M48.061 Spinal stenosis, lumbar region without neurogenic claudication | CPT/HCPCS: 72110; 99204 ==

== ENCOUNTER → 2022-09-08 10:59 | Outpatient (BNVA) | payer MEDICAID, SELFPAY | PROVIDERS: PCP Nurse Practitioner Family; Visit Provider Anesthesiology Pain Medicine | DX: M51.16 Intervertebral disc disorders with radiculopathy, lumbar region (principal); M79.604 Pain in right leg | CPT/HCPCS: 99204 ==

== ENCOUNTER → 2022-09-21 12:22 | Outpatient (BNVA) | payer MEDICAID, SELFPAY | PROVIDERS: PCP Nurse Practitioner Family; Visit Provider Anesthesiology Pain Medicine | DX: M54.16 Radiculopathy, lumbar region (principal) | CPT/HCPCS: 64483; 64484 ==

== ENCOUNTER → 2022-11-02 13:52 | Outpatient (BNVA) | payer MEDICAID, SELFPAY | PROVIDERS: PCP Nurse Practitioner Family; Visit Provider Anesthesiology Pain Medicine | DX: M54.16 Radiculopathy, lumbar region (principal) | CPT/HCPCS: 64483; 64484 ==

== ENCOUNTER → 2022-11-24 09:48 | Outpatient (BNVA) | payer MEDICAID, SELFPAY | PROVIDERS: PCP Nurse Practitioner Family; Visit Provider Anesthesiology Pain Medicine | DX: M51.16 Intervertebral disc disorders with radiculopathy, lumbar region (principal); M79.604 Pain in right leg; N32.81 Overactive bladder | CPT/HCPCS: 99214 ==

== ENCOUNTER → 2023-01-24 11:16 | Outpatient (BNVA) | payer MEDICAID, SELFPAY | PROVIDERS: PCP Nurse Practitioner Family; Visit Provider Anesthesiology Pain Medicine | DX: R10.30 Lower abdominal pain, unspecified (principal); M25.551 Pain in right hip; M51.16 Intervertebral disc disorders with radiculopathy, lumbar region; N32.81 Overactive bladder | CPT/HCPCS: 73521; 99214 ==

== ENCOUNTER → 2023-02-20 13:58 | Outpatient (BNVA) | payer MEDICAID, SELFPAY | PROVIDERS: PCP Nurse Practitioner Family; Visit Provider Anesthesiology Pain Medicine | DX: M51.16 Intervertebral disc disorders with radiculopathy, lumbar region (principal); R29.898 Other symptoms and signs involving the musculoskeletal system; N32.81 Overactive bladder | CPT/HCPCS: 99214 ==

== ENCOUNTER 2023-03-29 12:53 | Outpatient (CLI) | payer MEDICAID, SELFPAY ==
--- NOTE | 2023-03-29 13:45 | MR_ITS ---
WS: [email or web address] MRI BRAIN WITHOUT CONTRAST HISTORY: Intermittent headaches with blurry vision for one year. No injury. COMPARISON: None available. TECHNIQUE: Diffusion imaging, multiplanar T1, T2 and FLAIR imaging obtained. No evidence for acute infarct or hemorrhage. Burns-white matter differentiation is normal. No remote or acute infarcts are volume loss. Ventricles and extra-axial spaces are normal. No inferior displacement of cerebellar tonsils. The sella turcica and pituitary gland are unremarkabl e. No soft tissue mass in the sella turcica. No elevation of the optic chiasm. Dural venous sinuses and tazl[place] of [place] demonstrate no abnormality on this unenhanced studies. Paranasal sinuses: Clear. Mastoid air cells: Normal. Calvarium and scalp: Intact. MR/MR head wo con* [id number] IMPRESSION: 1. Unremarkable noncontrast MRI brain.
== END 2023-03-29 12:54 | disposition home or self-care (01) ==
LOC: RAD 12:57
PROVIDERS: PCP Nurse Practitioner Family; Visit Provider Anesthesiology Pain Medicine
DX: R29.898 Other symptoms and signs involving the musculoskeletal system (principal)
CPT/HCPCS: 70551

== ENCOUNTER → 2023-04-04 09:42 | Outpatient (BNVA) | payer MEDICAID, SELFPAY | PROVIDERS: PCP Nurse Practitioner Family; Visit Provider Anesthesiology Pain Medicine | DX: R51.9 Headache, unspecified (principal); M51.16 Intervertebral disc disorders with radiculopathy, lumbar region; N32.81 Overactive bladder | CPT/HCPCS: 99214 ==

== ENCOUNTER → 2023-07-31 07:27 | Outpatient (BNVA) | payer MEDICAID, SELFPAY | PROVIDERS: PCP Nurse Practitioner Family; Visit Provider Psychiatry & Neurology Neurology | DX: R41.3 Other amnesia (principal); R29.898 Other symptoms and signs involving the musculoskeletal system; R20.9 Unspecified disturbances of skin sensation; M54.2 Cervicalgia | CPT/HCPCS: 99203 ==

== ENCOUNTER → 2023-08-08 10:37 | Outpatient (BNVA) | payer MEDICAID, SELFPAY | PROVIDERS: PCP Nurse Practitioner Family; Visit Provider Nurse Practitioner Family | DX: R76.8 Other specified abnormal immunological findings in serum (principal); E55.9 Vitamin D deficiency, unspecified; F41.9 Anxiety disorder, unspecified; F32.9 Major depressive disorder, single episode, unspecified; Z13.6 Encounter for screening for cardiovascular disorders; Z79.899 Other long term (current) drug therapy; M51.16 Intervertebral disc disorders with radiculopathy, lumbar region; R68.89 Other general symptoms and signs; R41.3 Other amnesia; R29.898 Other symptoms and signs involving the musculoskeletal system; R20.9 Unspecified disturbances of skin sensation; M54.2 Cervicalgia | CPT/HCPCS: 80053; 80061; 81003; 82306; 83036; 84443; 85025; 85651; 86038; 86140; 86200 ==

== ENCOUNTER → 2023-08-22 16:06 | Outpatient (BNVA) | payer MEDICAID, SELFPAY | PROVIDERS: PCP Nurse Practitioner Family; Visit Provider Orthopaedic Surgery | DX: M54.10 Radiculopathy, site unspecified; M54.50 Low back pain, unspecified | CPT/HCPCS: 72100; 99214 ==

== ENCOUNTER 2023-09-01 06:55 | Outpatient (CLI) | payer MEDICAID, SELFPAY ==
--- NOTE | 2023-09-01 08:00 | MR_ITS ---
WS: [email or web address] MR CERVICAL SPINE WO/W COMPARISON: None. HISTORY: Arm and leg numbness TECHNIQUE: Sagittal T1, T2 and T2 inversion recovery; axial T2, T2 gradient and fiesta. Post gadolini um imaging with fat saturation technique. FINDINGS:Straightening of the normal cervical lordosis. No high grade central canal narrowing. Cord s ignal is normal. No abnormal gadolinium enhancement. No lesions or demyelinating lesions within the c ervical cord. No cord atrophy. C2-3: Mild facet arthropathy. Spinal canal and foramen are patent. C3-4: Mild facet arthropathy with osteophytic ridging. Mild LEFT foraminal narrowing. Spinal canal i s patent. C4-5: Mild osteophytic ridging. Mild facet arthropathy. Mild LEFT foraminal narrowing. C5-6: Minimal disc bulging. Mild osteophytic ridging. Mild LEFT bony foraminal narrowing. Mild facet arthropathy. C6-7: Mild LEFT bony foraminal narrowing. Spinal canal and RIGHT foramen are patent. C7-T1: LEFT eccentric osteophytic ridging. Mild to moderate LEFT foraminal narrowing with encroachmen t on the exiting LEFT C8 nerve root. IMPRESSION: 1. Straightening of the normal cervical lordosis. No high-grade central canal narrowing. Cord signa l is normal. 2. No demyelinating lesions or suspicious lesions in the cervical cord. No abnormal gadolinium enhan cement. 3. Mild to moderate LEFT C7-T1 bony foraminal narrowing with LEFT eccentric osteophytic ridging. Sli ght impingement of the exiting LEFT C8 nerve root. 4. Mild bony foraminal narrowing LEFT C4-C5, LEFT C5-C6 and LEFT C6-C7. 5. Mild facet arthropathy described above.
[2023-09-01] MEDS: gadobenate dimeglumine 20 mL vial IV (08:53)
== END 2023-09-01 06:56 | disposition home or self-care (01) ==
LOC: RAD 06:56
PROVIDERS: PCP Nurse Practitioner Family; Visit Provider Psychiatry & Neurology Neurology
DX: M54.10 Radiculopathy, site unspecified (principal); M48.02 Spinal stenosis, cervical region; M47.812 Spondylosis without myelopathy or radiculopathy, cervical region; R29.898 Other symptoms and signs involving the musculoskeletal system; R20.9 Unspecified disturbances of skin sensation; R41.3 Other amnesia
CPT/HCPCS: 72156; A9577

== ENCOUNTER 2023-09-14 07:42 | Outpatient (CLI) | payer MEDICAID, SELFPAY ==
--- NOTE | 2023-09-14 08:00 | MR_ITS ---
WS: [email or web address] MRI LUMBAR SPINE NONCONTRAST HISTORY: Low back pain. COMPARISON: 08/05/2022 TECHNIQUE: Sagittal and axial multisequence imaging is submitted. Normal lumbar alignment with no compression fractures or marrow edema. Mild disc desiccation at L3-4. Conus terminates normally at L1-2 disc level. L1-L2: Mild disc bulging. No stenosis. L2-L3: Mild facet arthritis. No stenosis. L3-L4: Shallow central disc protrusion as noted on the prior examination also. There is mild encroach ment upon the subarticular recesses but no high-grade stenosis or progression. Mild facet arthritis. L4-L5: Facet joint arthritis is mild. Mild encroachment upon the traversing L5 nerve roots. Slight en largement of the LEFT L5 nerve root. L5-S1: Mild disc bulging. Shallow central disc protrusion and facet arthritis. Paravertebral soft tissues are negative. IMPRESSION: 1. No high-grade central or foraminal stenosis. 2. Shallow central disc protrusion at L3-4. Similar to the prior study. Mild encroachment upon the s ubarticular recesses. 3. Mild disc encroachment upon the traversing L5 nerve roots at L4-5. Very slight enlargement of the LEFT L5 nerve root. 4. Shallow central disc protrusion at L5-S1 with facet arthropathy.
== END 2023-09-14 07:43 | disposition home or self-care (01) ==
LOC: RAD 07:42
PROVIDERS: PCP Nurse Practitioner Family; Visit Provider Orthopaedic Surgery
DX: M51.26 Other intervertebral disc displacement, lumbar region (principal); M47.816 Spondylosis without myelopathy or radiculopathy, lumbar region
CPT/HCPCS: 72148

== ENCOUNTER → 2023-10-05 11:53 | Outpatient (BNVA) | payer MEDICAID, SELFPAY | PROVIDERS: PCP Nurse Practitioner Family; Visit Provider Psychiatry & Neurology Neurology | DX: R68.89 Other general symptoms and signs (principal); Z86.19 Personal history of other infectious and parasitic diseases; M51.16 Intervertebral disc disorders with radiculopathy, lumbar region; R41.3 Other amnesia; R20.0 Anesthesia of skin; R20.2 Paresthesia of skin | CPT/HCPCS: 36415; 82607; 82746; 83735; 83921; 86592; 86780; 99212 ==

== ENCOUNTER 2023-10-24 07:03 | Outpatient (CLI) | payer MEDICAID, SELFPAY ==
--- NOTE | 2023-10-24 07:15 | MR_ITS ---
WS: [email or web address] MRI THORACIC SPINE with and without HISTORY: R41.3 - Other amnesia, lower extremity weakness. Numbness of both feet. COMPARISON: None available. TECHNIQUE: Multiplanar sequences are performed in sagittal and axial planes. Postcontrast imaging Mul tiHance 19 mL. Motion artifact. Imaging is significantly degraded. The thoracic alignment appears normal. There is no cord compression. No marrow replacement pattern. N o inferior displacement of cerebellar tonsils. There is no signal abnormality within the cord. No cor d atrophy or enlargement. Conus tapers normally at L1. There is very slight anterior wedging of T4 an d T5. This does not appear to be acute. T1-2: Normal. T2-3: Mild disc bulging contacting the ventral thecal sac. No stenosis. T3-4: Facet arthritis. No stenosis. T4-5: Normal. T5-6: Bilateral facet arthritis and foraminal stenosis, RIGHT greater than LEFT. T6-7: Normal. T7-8: Mild LEFT foraminal stenosis due to facet arthritis. T8-9: Normal. T9-10: Mild foraminal stenosis. T10-11: Normal. T11-12: Normal. IMPRESSION: 1. This study is significantly compromised by artifact and motion. 2. There is no high-grade stenosis or cord compression. 3. Multilevel mild facet arthritis throughout the thoracic spine as above. 4. No acute thoracic spine fracture or marrow edema.
[2023-10-24] MEDS: gadobenate dimeglumine 20 mL vial IV (07:42)
== END 2023-10-24 07:04 | disposition home or self-care (01) ==
PROVIDERS: PCP Nurse Practitioner Family; Visit Provider Psychiatry & Neurology Neurology
DX: R41.3 Other amnesia (principal); R68.89 Other general symptoms and signs; M51.16 Intervertebral disc disorders with radiculopathy, lumbar region; R20.0 Anesthesia of skin; R20.2 Paresthesia of skin
CPT/HCPCS: 72157; A9577

== ENCOUNTER → 2023-11-23 15:07 | Outpatient (BNVA) | payer MEDICAID, SELFPAY | PROVIDERS: PCP Nurse Practitioner Family; Visit Provider Orthopaedic Surgery | DX: M54.9 Dorsalgia, unspecified (principal) | CPT/HCPCS: 72110; 99214 ==

== ENCOUNTER → 2023-11-28 14:37 | Outpatient (BNVA) | payer MEDICAID, SELFPAY | PROVIDERS: PCP Nurse Practitioner Family; Referring Provider Orthopaedic Surgery; Visit Provider Specialist | DX: M51.16 Intervertebral disc disorders with radiculopathy, lumbar region (principal) | CPT/HCPCS: 95910 ==

== ENCOUNTER 2023-12-18 07:26 | Outpatient (CLI) | payer MEDICAID, SELFPAY ==
--- NOTE | 2023-12-18 08:00 | US_ITS ---
WS: [email or web address] ULTRASOUND SOFT TISSUES RIGHT chest wall. HISTORY: D17.1 - Benign lipomatous neoplasm of skin and subcutaneo... COMPARISON: None available. TECHNIQUE: 2-D and color Doppler imaging is submitted. Ultrasound is directed by the patient to the area of interest over the RIGHT thorax. There is an isoe choic ovoid shaped mass in the area of concern measuring 3.6 x 0.8 cm. No increased vascularity. This is most likely a small benign lipoma. IMPRESSION: Mass at the area of interest is very likely a lipoma measuring 3.6 x 0.8 cm. Nonaggressive mass.
== END 2023-12-18 07:27 | disposition home or self-care (01) ==
LOC: RAD 07:26
PROVIDERS: PCP Nurse Practitioner Family; Visit Provider Nurse Practitioner Family
DX: D17.1 Benign lipomatous neoplasm of skin and subcutaneous tissue of trunk (principal)
CPT/HCPCS: 76536

== ENCOUNTER → 2024-01-17 14:09 | Outpatient (BNVA) | payer MEDICAID, SELFPAY | PROVIDERS: PCP Nurse Practitioner Family; Referring Provider Nurse Practitioner Family; Visit Provider Surgery | DX: D17.1 Benign lipomatous neoplasm of skin and subcutaneous tissue of trunk (principal) | CPT/HCPCS: 99203 ==

== ENCOUNTER 2024-02-12 05:43 | Day surgery (SDC) | payer MEDICAID, SELFPAY ==
[2024-02-12] VITALS (12 sets, daily range): BP systolic 97–123; BP diastolic 58–81; PULSE 64–108; RESP 12–18; TEMP 36.3–36.5; O2SAT 96–99; BMI 30.5
--- NOTE | 2024-02-12 05:50 | P.HPUD_ITS ---
Surgery/Procedure H&P Update DATE OF PROCEDURE: February 12, 2024 DATE H&P PERFORMED: 01/10/22 H&P UPDATE INFORMATION: I have reviewed H&P completed within last 30 days, I have examined patient prior to procedure, No changes to prior documentation and H&P is in [facility] [place] on date indicated PLANNED PROCEDURE: Operation Date: 02/12/24 07:00 Proposed Procedures p excision mass on right flank [id number], D17.1(Right) - Mohinder Treadwell MD
[2024-02-12] MEDS: sodium chloride 0.9% 1,000 ML 30 ML IV (06:29)
[2024-02-12] MEDS: clindamycin 600 MG/50 ML PREMIX 100 MG IV (07:00)
[2024-02-12] MEDS: lidocaine-epi 1% 20 mL INJ INJECTION (07:33)
[2024-02-12] MEDS: BUPivacaine 0.25% INJ 10 mL INJECTION (07:33)
--- NOTE | 2024-02-12 07:46 | P.ANESASSM_ITS ---
Pre-Anesthetic Assessment Height/Weight: Height 1.57 m Weight 75.75 kg Temp Pulse Resp BP Pulse Ox O2 Del Method 97.4 F L 64 18 123/65 98 Room Air 02/12/24 06:11 02/12/24 06:11 02/12/24 06:11 02/12/24 06:11 02/12/24 06:11 02/12/24 06:11 Operation Date: 02/12/24 07:00 Proposed Procedures p excision mass on right flank [id number], D17.1(Right) - Mohinder Treadwell MD Familial anesthetic complications: none Was Beta Suhail taken within 24 hours: N/A Was Clonidine taken within 24 hours: N/A Last intake: Intake Last Liquid Date 02/11/24 Last Liquid Time 21:00 Last Solid Date 02/11/24 Last Solid Time 21:00 Social Tobacco (ind[place]) and No alcohol Exam alert, oriented x 3 and regular rate & rhythm Airway Submandibular: within normal limits Cervical ROM: within normal limits Mallampati: Class II Dentition: chipped Comments: Comments: Missing some Pulmonary Asthma and Chronic Obstructive Pulmonary Disease GI Gastroesophageal Reflux Disease Metabolic Morbid Obesity [facility] [place] Lower Back Pain and Osteoarthritis/DJD Neuropsych Anxiety and Depression Anesthetic Plan ASA status: 3 Anesthesia: Choice Medications/Allergies Home Medications Medication Instructions Recorded Confirmed Last Taken Type albuterol sulfate 90 mcg/actuation 1 inh inhalation QID PRN shortness 10/13/23 02/12/24 2 Weeks Ago Rx aerosol inhaler of breath or wheezing 30 days #8.5 ~01/26/24 grams venlafaxine 75 mg capsule,extended 75 mg PO DAILY 90 days #90 caps 10/13/23 02/12/24 1 Week Ago Rx release 24 hr ~02/02/24 ibuprofen 800 mg tablet 800 mg PO Q8H PRN pain 30 days #60 12/07/23 02/12/24 02/06/24 Rx tabs methocarbamol 750 mg tablet See Rx Instructions .Route 12/08/23 02/12/24 2 Weeks Ago Rx .COMPLEX #60 tabs ~01/26/24 clonazepam 0.5 mg tablet (Klonopin) 0.5 mg PO BID PRN anxiety 30 days 01/15/24 02/12/24 2 Weeks Ago Rx #60 tabs ~01/26/24 Allergies Allergy/AdvReac Type Severity Reaction Status Date / Time Penicillins Allergy Intermediate rash Verified 01/17/24 14:23 latex AdvReac Intermediate itching Verified 01/17/24 14:23 Current Medications Generic Name Dose Route Start Last Admin Trade Name Caro PRN Reason Stop Dose Admin Sodium Chloride 1,000 mls @ 30 mls/hr 02/12/24 06:00 02/12/24 06:29 Sodium Chloride 0.9% IV 02/13/24 05:59 30 mls/hr .Q24H YVETTE Administration PFSH Anesthesia Medical History Lipoma of chest wall Endometriosis determined by laparoscopy (~2009) Self reports confirmation during laparotomy in 2009, but again confirmed at the time of her hysterectomy in 2013. No pertinent past medical history neghx: htn,dm,thyroid,dvt/pe PCP: CATE Gross Bursitis of left elbow Vitamin D deficiency Inguinal lymphadenopathy Anxiety and depression Back pain with radiculopathy Chronic bronchitis GERD (gastroesophageal reflux disease) H/O nephrotic syndrome Mild intermittent asthma Chronic insomnia Surgical History History of ear surgery (~10/13/21) R ear, tube placed History of hysterectomy (~08/07/14) Da Liliana assisted LAVH, laparoscopic bilateral salpingectomy ovaries spared. Performed in [place]- due to pelvic pain and heavy periods. Minimal endometriosis noted. Performed by Dr. Torres at [place] [facility] H/O dilation and curettage treat SAB History of kidney surgery Left ureter required repair after her hysterectomy H/O exploratory laparotomy (~2009) dx with endometriosis at that time. Dr. Padilla H/O bladder repair surgery (~2016) performed twice-- both completed in [place] S/P lymph node biopsy (04/05/21) groin-- benign History of laparoscopy several-- for pain/endometriosis treatment-- after her endometriosis diagnosis History of ear surgery 2020 History of umbilical hernia repair 2017- lap Family History Mother Diabetes Hypertension Grandfather Heart disease Maternal Father Hypertension Thyroid disease Daughter Thyroid disease Denies family history of Colon cancer Ovarian cancer Hypercholesteremia Breast cancer Uterine cancer Stroke Social History (Updated 02/09/24 @ 09:59 by Griselda Dixon RN) Smoking and tobacco/nicotine status: former use of tobacco/nicotine Second hand smoke exposure: No Alcohol intake: never Substance/Drug Use: current Substance/Drug use frequency: daily Adopted: No Caregiver/support person: No Lives independently: No service: No Current occupational status: employed Sexually active: Yes Do you think of yourself as: Straight/Heterosexual Current gender identity: Female Data Anesthesia Cardiac Studies: No Data to Display
--- NOTE | 2024-02-12 07:48 | P.OP_ITS ---
Operative Report Date of procedure: February 12, 2024 Pre-op diagnosis: Soft tissue mass of the right flank Post-op diagnosis: Soft tissue mass of the right flank Post-op findings: There was a 7 x 3 cm lipomatous soft tissue mass of the right flank Procedure done: Excision of right flank mass Implants: None Specimens removed/disposition: Right flank mass Surgeon: Mohinder Treadwell MD Bookkeeping Assistant: MERRITT OR Staff Estimated blood loss: 5 Brief History: This is a 38-year-old female who presents for excision of a right flank mass. After discussion of all risk and benefits as documented my preop note we decided to proceed. Procedure: Patient was brought into the OR, she was placed in a supine position with left lateral tilt. General anesthesia was given. The right flank was prepped and draped in the usual sterile fashion. Timeout was conducted. A 4 cm incision was made along Concepcion lines in the previously marked area. The incision was deepened to subcutaneous tissue with electrocautery. Matt's fascia was opened. Underlying Matt's fascia a lipomatous mass of the soft tissue was noted. This lesion was circumferentially dissected with blunt dissection and delivered through the wound. The deep aspect was deeply attach to the superficial muscular fascia, electrocautery was used to excise the mass at this level. Mass was passed for pathology. Hemostasis was verified. Wound was irrigated. The wound was then closed in layers using #2-0 Vicryl for the deep space, #3-0 Vicryl for the subcutaneous tissue and #4 Monocryl for the skin. Dermabond was applied and a compressive dressing was placed. At the end of the procedure all counts were correct, the patient tolerated well the procedure and was transferred to PACU in stable condition.
[2024-02-12] MEDS: diphenhydrAMINE 50 mg/mL SDV 1mL 12.5 MG IVP (08:35)
[2024-02-12] MEDS: HYDROmorphone 1 mg/mL INJ 1 mL 0.5 MG IVP (08:41)
--- NOTE | 2024-02-12 15:54 | ANE.PACU2 ---
Inpatient post-anesthesia follow up: Airway intact: Yes Vital signs: Temperature 97.7 F Pulse Rate 85 Respiratory Rate 16 Blood Pressure 116/81 Pulse Oximetry 97 Oxygen Delivery Me thod Room Air Oxygen Flow Rate Fraction of Inspir ed Oxygen Hydration adequate: Yes Nausea and vomiting: Yes Pain level: 2 Mental status: Baseline
== END 2024-02-12 09:18 | disposition home or self-care (01) ==
PROVIDERS: PCP Nurse Practitioner Family; Visit Provider Surgery
PROC: (CPT 11406; principal; 2024-02-12 07:00)
DX: D17.1 Benign lipomatous neoplasm of skin and subcutaneous tissue of trunk (principal); J44.9 Chronic obstructive pulmonary disease, unspecified; K21.9 Gastro-esophageal reflux disease without esophagitis; E66.01 Morbid (severe) obesity due to excess calories; Z68.30 Body mass index [BMI] 30.0-30.9, adult
CPT/HCPCS: 11406; 12032; 88307; J1100; J1170; J1200; J2250; J2371; J2405; J2704; J3010; J3490; J7030

== ENCOUNTER → 2024-02-28 11:15 | Outpatient (BNVA) | payer MEDICAID, SELFPAY | PROVIDERS: PCP Nurse Practitioner Family; Visit Provider Internal Medicine Rheumatology | DX: Z79.899 Other long term (current) drug therapy (principal); M19.90 Unspecified osteoarthritis, unspecified site; Z11.1 Encounter for screening for respiratory tuberculosis; Z11.59 Encounter for screening for other viral diseases; M45.6 Ankylosing spondylitis lumbar region; R76.8 Other specified abnormal immunological findings in serum; Z71.85 Encounter for immunization safety counseling | CPT/HCPCS: 36415; 73130; 73562; 73630; 80076; 82306; 82565; 83520; 85025; 85651; 86140; 86431; 86480; 86704; 86803; 86812; 87340; 99204 ==

== ENCOUNTER → 2024-05-20 10:17 | Outpatient (BNVA) | payer MEDICAID, SELFPAY | PROVIDERS: PCP Nurse Practitioner Family; Visit Provider Internal Medicine Rheumatology | DX: M06.041 Rheumatoid arthritis without rheumatoid factor, right hand (principal); M06.042 Rheumatoid arthritis without rheumatoid factor, left hand; R76.8 Other specified abnormal immunological findings in serum; Z79.899 Other long term (current) drug therapy; Z71.85 Encounter for immunization safety counseling; F17.200 Nicotine dependence, unspecified, uncomplicated | CPT/HCPCS: 99214 ==